=== PATIENT | female | born 1975 | race Caucasian/White ===

== ENCOUNTER 2018-05-16 09:23 | Day surgery (SDC) | payer OTHER ==
[~2018-05-16] VITALS: Ht 162.6 cm; Wt 99.4 kg
[~2018-05-16 09:23] MED LIST: ABILIFY PO; BUSP15 PO; Budeprion Xl300 MG PO; GABA600 PO; HYDPAM50 PO; IBUP800 PO; MELA3 PO; TIZANIDINE HCL4 MG PO
[2018-05-16] MEDS ORDERED: Prozac20 MG PO (10:01)
--- NOTE | 2018-05-16 13:29 | NUR ---
05/16/18 [id number] Silvia Chapman [id number] RECIEVED REPORT FROM MIKE GUY. PT RESTING IN RECLINER WITH RIGHT HAND ELEVATED AND ICE PACK APPLIED. PT C/O BACK PAIN 09/24 AND DESCRIBES HER RIGHT HAND "TINGLY." DC INSTRUCTIONS WITH SPOUSE AND MOTHER AT CHAIRSIDE. PT MEDICATED WITH PO MEDS PRIOR TO DC. PT TOLERATING PO FLUIDS AND COOKIES WELL. VSS.
== END 2018-05-16 13:21 | disposition home or self-care (01) ==
LOC: ORSCSDS 09:23
PROVIDERS: Orthopaedic Surgery
PROC: 01N50ZZ Release Median Nerve, Open Approach (ICD-10-PCS; principal; 2018-05-16 10:45)
DX: G56.01 Carpal tunnel syndrome, right upper limb (principal); E66.01 Morbid (severe) obesity due to excess calories; Z68.37 Body mass index [BMI] 37.0-37.9, adult; Z79.899 Other long term (current) drug therapy
CPT/HCPCS: A9270-GY; J0690; J1885; J2250; J3010

== ENCOUNTER → 2018-06-01 | Outpatient (CLI) | payer OTHER ==
[~2018-06-01] MED LIST changes: +Prozac20 MG PO
[2018-06-02 08:43] LABS: Candida species (DNA Probe) Negative (NEGATIVE); G. vaginalis (DNA Probe) Positive (NEGATIVE); T. vaginalis (DNA Probe) Negative (NEGATIVE)
[2018-06-03 02:09] LABS: CHLAMYDIA TRACHOMATIS, NAA Negative (Negative); NEISSERIA GONORRHOEAE, NAA Negative (Negative)
== END | disposition home or self-care (01) ==
LOC: LAB SHORT 11:43 → LAB 11:43
PROVIDERS: Obstetrics & Gynecology
DX: Z11.3 Encounter for screening for infections with a predominantly sexual mode of transmission (principal); N76.0 Acute vaginitis
CPT/HCPCS: 87480; 87491; 87510; 87591; 87660